=== PATIENT | male | born 1955 | race Two or more races ===

== ENCOUNTER 2025-08-08 08:33 | Inpatient (IN) | payer MEDICAID ==
[~2025-08-08] VITALS: Ht 182.9 cm; Wt 80.3 kg
[2025-08-08 08:37] VITALS: O2SAT 99
[2025-08-08] MEDS: IOHEXOL-350 100 ML BOTTLE ONE (09:23)
[2025-08-08 09:39] LABS: BASOPHILS % 0.4 % (0.0-2.0); EOSINOPHILS % 3.0 % (0.0-5.0); HEMATOCRIT. 28.1 % (42.0-52.0); HEMOGLOBIN. 9.3 g/dL (14.0-18.0); LYMPHOCYTES % 14.3 % (20.0-50.0); MONOCYTES % 14.4 % (2.0-8.0); NEUTROPHILS % 67.9 % (40.0-76.0); RED BLOOD CELL COUNT 2.89 mill/uL (4.7-6.1); RED CELL DISTRIBUTION WIDTH 17.2 % (11.6-14.6)
[2025-08-08 09:48] LABS: ADD RBC MORPHOLOGY YES
[2025-08-08 09:54] LABS: UREA NITROGEN BLOOD 43 mg/dL (9-23)
[2025-08-08 09:55] LABS: ETHANOL BLOOD < 10 mg/dL (<10); PROTEIN TOTAL 5.6 g/dL (6.0-8.3)
[2025-08-08 09:56] LABS: ASPARTATE AMINOTRANSFERASE 56 IU/L (<34); BILIRUBIN DIRECT 0.6 mg/dL (<=3.0); BILIRUBIN TOTAL 1.3 mg/dL (0.1-1.0)
[2025-08-08 09:57] LABS: INR 1.1
[2025-08-08 10:45] LABS: MEAN PLATELET VOLUME 8.1 fl (7.4-10.4); PLATELET 47 x1000/uL (130-400)
[2025-08-08 10:46] LABS: PLATELET ESTIMATE MARKEDLY DECREASED
[2025-08-08 10:47] LABS: TROPONIN I HIGH SENSITIVITY 120 ng/L (3.0-53)
[2025-08-08 10:48] LABS: CREATININE 7.6 mg/dL (0.6-1.3)
[2025-08-08] MEDS ORDERED: ACETAMINOPHEN 325MG TABLET PO PRN ×2 (14:00)
[2025-08-08] MEDS ORDERED: DOCUSATE SODIUM 100MG CAPSULE PO PRN (14:00)
[2025-08-08] MEDS ORDERED: CLONIDINE 0.1MG TABLET PO PRN (14:00)
[2025-08-08] MEDS ORDERED: ONDANSETRON HCL 4MG/2ML INJ IV PRN (14:00)
[2025-08-08] MEDS ORDERED: IPRATROPIUM/ALBUTEROL 0.5-3(2.5)MG/3ML NEB HHN PRN (14:00)
[2025-08-08 20:00] VITALS: BP 134/77; PULSE 67; RESP 18; TEMP 36.7; O2SAT 100
[2025-08-08] MEDS: EPOETIN ALFA-EPBX 4,000 UNITS/ML VIAL SUBCUT SCH (20:32)
[2025-08-08] MEDS: ATORVASTATIN CALCIUM 40MG TABLET PO SCH (20:32)
[2025-08-08 22:41] LABS: TRIGLYCERIDE 87 mg/dL (0-150)
[2025-08-08 22:42] LABS: LDL CHOLESTEROL 117 mg/dL (5-100)
[2025-08-08 22:43] LABS: FOLIC ACID (FOLATE) SERUM 15.13 ng/mL (>5.38)
[2025-08-08 22:45] LABS: T4 FREE 0.60 ng/dL (0.89-1.76); TROPONIN I HIGH SENSITIVITY 141 ng/L (3.0-53)
[2025-08-08 22:46] LABS: VITAMIN B12 SERUM > 2000 pg/mL (211-911)
[2025-08-08 22:47] LABS: VITAMIN B12 SERUM > 2000 pg/mL (211-911)
[2025-08-08 23:16] LABS: HEPATITIS A AB IGM NEGATIVE (Negative)
[2025-08-08 23:17] LABS: HEPATITIS B CORE AB IGM NEGATIVE (Negative); HEPATITIS C AB NON REACTIVE (Neg) (Negative)
[2025-08-08 23:21] VITALS: BP 134/77; PULSE 67; RESP 17; TEMP 36.7516
[2025-08-09] VITALS: BP 121/82; PULSE 63; RESP 19; TEMP 36.7; O2SAT 99
[2025-08-09 04:00] VITALS: BP 115/79; PULSE 70; RESP 18; TEMP 36.6; O2SAT 100
[2025-08-09 06:44] LABS: BASOPHILS % 0.4 % (0.0-2.0); EOSINOPHILS % 3.5 % (0.0-5.0); HEMATOCRIT. 30.0 % (42.0-52.0); HEMOGLOBIN. 9.8 g/dL (14.0-18.0); LYMPHOCYTES % 14.6 % (20.0-50.0); MEAN PLATELET VOLUME 8.3 fl (7.4-10.4); MONOCYTES % 13.5 % (2.0-8.0); NEUTROPHILS % 68.0 % (40.0-76.0); RED BLOOD CELL COUNT 3.01 mill/uL (4.7-6.1); RED CELL DISTRIBUTION WIDTH 19.2 % (11.6-14.6)
[2025-08-09 06:58] LABS: PLATELET 48 x1000/uL (130-400)
[2025-08-09 06:59] LABS: PROTEIN TOTAL 5.4 g/dL (6.0-8.3)
[2025-08-09 07:02] LABS: LDL CHOLESTEROL 101 mg/dL (5-100); TRIGLYCERIDE 84 mg/dL (0-150); UREA NITROGEN BLOOD 39 mg/dL (9-23)
[2025-08-09 07:03] LABS: ASPARTATE AMINOTRANSFERASE 58 IU/L (<34)
[2025-08-09 07:04] LABS: BILIRUBIN TOTAL 1.4 mg/dL (0.1-1.0); PHOSPHORUS 6.5 mg/dL (2.5-4.9)
[2025-08-09 07:20] LABS: TROPONIN I HIGH SENSITIVITY 124 ng/L (3.0-53)
[2025-08-09 08:00] VITALS: BP 108/82; PULSE 66; RESP 15; TEMP 36.3; O2SAT 98
[2025-08-09 08:10] LABS: CREATININE 8.6 mg/dL (0.6-1.3)
[2025-08-09] MEDS: FOLIC ACID/VITAMIN B COMP W-C TABLET PO SCH (08:44)
[2025-08-09] MEDS: CLOPIDOGREL 75MG TABLET PO SCH (08:44)
[2025-08-09] MEDS: ASPIRIN 81MG TABLET PO SCH (08:44)
[2025-08-09 12:00] VITALS: BP 111/70; PULSE 62; RESP 17; TEMP 36.3; O2SAT 99
[2025-08-09 16:00] VITALS: BP 116/71; PULSE 69; RESP 15; TEMP 36.3; O2SAT 96
[2025-08-09] MEDS: LANTHANUM CARBONATE 500MG CHEW TABLET PO SCH (17:50)
[2025-08-09 20:00] VITALS: BP 130/79; PULSE 69; RESP 19; TEMP 36.7; O2SAT 99
[2025-08-09 21:38] LABS: TROPONIN I HIGH SENSITIVITY 135 ng/L (3.0-53)
[2025-08-09] MEDS: IRON SUCROSE COMPLEX 100 MG/5 ML ML IV SCH (22:02)
[2025-08-10] VITALS (15 sets, daily range): BP systolic 102–145; BP diastolic 75–88; PULSE 57–72; RESP 15–20; TEMP 36.114–36.7; O2SAT 96–100
[2025-08-10] MEDS: LEVOTHYROXINE SODIUM 50MCG TABLET PO SCH (06:39)
[2025-08-10 08:41] LABS: PHOSPHORUS 7.1 mg/dL (2.5-4.9)
[2025-08-10] MEDS: LACTULOSE 20G/30ML UDC PO SCH (22:00)
[2025-08-11 04:00] VITALS: BP 129/78; PULSE 62; RESP 16; TEMP 36.1; O2SAT 97
[2025-08-11 08:25] LABS: HEMATOCRIT. 31.5 % (42.0-52.0); HEMOGLOBIN. 10.2 g/dL (14.0-18.0); MEAN PLATELET VOLUME 8.1 fl (7.4-10.4); RED BLOOD CELL COUNT 3.22 mill/uL (4.7-6.1); RED CELL DISTRIBUTION WIDTH 18.2 % (11.6-14.6)
[2025-08-11 08:38] LABS: PLATELET 43 x1000/uL (130-400)
[2025-08-11 08:47] LABS: UREA NITROGEN BLOOD 51.0 mg/dL (9-23)
[2025-08-11 10:17] LABS: CREATININE 9.0 mg/dL (0.6-1.3)
[2025-08-11] MEDS ORDERED: IPRATROPIUM/ALBUTEROL 0.5-3(2.5)MG/3ML NEB HHN PRN (13:15)
[2025-08-11] MEDS ORDERED: DIATR MEGLU/DIATRIZOATE SOLN 30ML PO PRN (14:00)
[2025-08-11] MEDS ORDERED: HYDRALAZINE 20MG/ML VIAL IV PRN (14:15)
[2025-08-11 16:00] VITALS: BP 127/84; PULSE 64; RESP 15; TEMP 36.4; O2SAT 96
[2025-08-11 16:31] LABS: EOSINOPHILS % MANUAL 1.0 % (0.0-5.0); LYMPHOCYTES % MANUAL 25.0 % (20.0-50.0); MONOCYTES % MANUAL 11.0 % (2.0-8.0); NEUTROPHILS % MANUAL 63.0 % (45.0-75.0); PLATELET ESTIMATE DECREASED
[2025-08-11 20:00] VITALS: BP 130/75; PULSE 65; RESP 18; TEMP 36.3; O2SAT 99
[2025-08-11] MEDS ORDERED: RIFAXIMIN 200MG TABLET PO SCH (21:00)
[2025-08-11] MEDS: RIFAXIMIN 550 MG TABLET PO SCH (23:04)
[2025-08-12] VITALS (15 sets, daily range): BP systolic 94–134; BP diastolic 66–90; PULSE 60–104; RESP 16–20; TEMP 35.5–36.3; O2SAT 96–98
[2025-08-12] MEDS ORDERED: LACTULOSE ENEMA 1,000ML BOTTLE PR NR (05:45)
[2025-08-12] MEDS: PANTOPRAZOLE SODIUM 40 MG/VIAL IV SCH (09:13)
[2025-08-12 12:42] LABS: HEMATOCRIT. 28.6 % (42.0-52.0); HEMOGLOBIN. 9.5 g/dL (14.0-18.0); MEAN PLATELET VOLUME 8.0 fl (7.4-10.4); RED BLOOD CELL COUNT 2.94 mill/uL (4.7-6.1); RED CELL DISTRIBUTION WIDTH 18.0 % (11.6-14.6)
[2025-08-12 12:58] LABS: UREA NITROGEN BLOOD 57 mg/dL (9-23)
[2025-08-12 12:59] LABS: PROTEIN TOTAL 5.4 g/dL (6.0-8.3)
[2025-08-12 13:00] LABS: ASPARTATE AMINOTRANSFERASE 53 IU/L (<34); LACTATE DEHYDROGENASE 265 IU/L (120-246)
[2025-08-12 13:01] LABS: BILIRUBIN TOTAL 1.5 mg/dL (0.1-1.0)
[2025-08-12 13:02] LABS: CREATININE 9.0 mg/dL (0.6-1.3)
[2025-08-12 14:18] LABS: EOSINOPHILS % MANUAL 3.0 % (0.0-5.0); LYMPHOCYTES % MANUAL 15.0 % (20.0-50.0); MONOCYTES % MANUAL 12.0 % (2.0-8.0); NEUTROPHILS % MANUAL 70.0 % (45.0-75.0); PLATELET ESTIMATE MARKEDLY DECREASED
[2025-08-12] MEDS: DIATR MEGLU/DIATRIZOATE SOLN 30ML PO SCH (17:25)
[2025-08-12 22:43] LABS: PLATELET 34 x1000/uL (130-400)
[2025-08-12] MEDS ORDERED: IOHEXOL-300 100 ML BOTTLE ONE (23:24)
[2025-08-13] VITALS (10 sets, daily range): BP systolic 119–140; BP diastolic 60–107; PULSE 62–99; RESP 17–18; TEMP 36–36.61404; O2SAT 97–98
[2025-08-13] MEDS: LACTULOSE 20G/30ML UDC PO SCH (06:39)
[2025-08-13 07:42] LABS: UREA NITROGEN BLOOD 31 mg/dL (9-23)
[2025-08-13 07:43] LABS: PROTEIN TOTAL 6.1 g/dL (6.0-8.3)
[2025-08-13 07:44] LABS: ASPARTATE AMINOTRANSFERASE 78 IU/L (<34); BILIRUBIN TOTAL 1.5 mg/dL (0.1-1.0)
[2025-08-13 07:46] LABS: CREATININE 8.0 mg/dL (0.6-1.3)
[2025-08-13 07:47] LABS: INR 1.1
[2025-08-13] MEDS ORDERED: ALBUMIN HUMAN 25GM/100ML (25%) IV PRN (08:00)
[2025-08-13 10:40] LABS: BASOPHILS % 0.5 % (0.0-2.0); EOSINOPHILS % 2.3 % (0.0-5.0); HEMATOCRIT. 33.0 % (42.0-52.0); HEMOGLOBIN. 10.8 g/dL (14.0-18.0); LYMPHOCYTES % 10.8 % (20.0-50.0); MEAN PLATELET VOLUME 8.5 fl (7.4-10.4); MONOCYTES % 16.6 % (2.0-8.0); NEUTROPHILS % 69.8 % (40.0-76.0); RED BLOOD CELL COUNT 3.40 mill/uL (4.7-6.1); RED CELL DISTRIBUTION WIDTH 18.1 % (11.6-14.6)
[2025-08-13 11:02] LABS: PLATELET 48 x1000/uL (130-400)
[2025-08-13] MEDS: LACTULOSE ENEMA 1,000ML BOTTLE PR SCH (11:18)
[2025-08-14] VITALS: BP 124/77; PULSE 68; RESP 18; TEMP 36.3; O2SAT 98
[2025-08-14 04:00] VITALS: BP 120/79; PULSE 74; RESP 18; TEMP 36.3; O2SAT 96
[2025-08-14 08:00] VITALS: BP 139/82; PULSE 67; RESP 16; TEMP 36.5; O2SAT 97
[2025-08-14] MEDS ORDERED: SODIUM BICARBONATE 4.2% 2.5MEQ/5ML VIAL IV ONE (11:48)
[2025-08-14] MEDS ORDERED: LIDOCAINE HCL 1% 10 MG/ML 10ML VIAL ONE (11:49)
[2025-08-14 12:00] VITALS: BP 130/82; PULSE 65; RESP 18; TEMP 36.4; O2SAT 98
[2025-08-14 16:00] VITALS: BP 118/75; PULSE 68; RESP 15; TEMP 36.6; O2SAT 99
[2025-08-14 20:00] VITALS: BP 123/84; PULSE 71; RESP 20; TEMP 37.2; O2SAT 100
[2025-08-15] VITALS (15 sets, daily range): BP systolic 110–138; BP diastolic 72–86; PULSE 60–82; RESP 15–19; TEMP 36.22512–36.8; O2SAT 95–100
[2025-08-15 01:33] LABS: BODY FLUID MONOCYTES 7 %; BODY FLUID RBC 7300 /cu mm (0-2000); BODY FLUID WBC 14 /cu mm (0-200)
[2025-08-15 05:58] LABS: PROTEIN TOTAL 5.2 g/dL (6.0-8.3); UREA NITROGEN BLOOD 48 mg/dL (9-23)
[2025-08-15 05:59] LABS: ASPARTATE AMINOTRANSFERASE 95 IU/L (<34)
[2025-08-15 06:00] LABS: BILIRUBIN DIRECT 0.7 mg/dL (<=3.0); BILIRUBIN TOTAL 1.3 mg/dL (0.1-1.0)
[2025-08-15 06:07] LABS: CREATININE 9.9 mg/dL (0.6-1.3)
[2025-08-15 06:26] LABS: HEMATOCRIT. 30.4 % (42.0-52.0); HEMOGLOBIN. 10.1 g/dL (14.0-18.0); MEAN PLATELET VOLUME 8.1 fl (7.4-10.4); PLATELET 52 x1000/uL (130-400); RED BLOOD CELL COUNT 3.15 mill/uL (4.7-6.1); RED CELL DISTRIBUTION WIDTH 17.0 % (11.6-14.6)
[2025-08-15 08:09] LABS: ALPHA FETOPROTEIN TUMOR MARKER 3.9 ng/mL (0.0-8.4); CA 19-9 84.0 U/mL (0-35); CARCINOEMBRYONIC AG - SEND OUT 10.7 ng/mL (0.0-4.7); PROSTATE SPECIFIC AG TOTAL 1.3 ng/mL (0.0-4.0)
[2025-08-15] MEDS ORDERED: RIFA550T PO (08:55)
[2025-08-15] MEDS ORDERED: CARV3.1242 MT (08:55)
[2025-08-15] MEDS ORDERED: LEVO50TA8 PO (08:55)
[2025-08-15] MEDS ORDERED: LACT-390 PO (08:55)
[2025-08-15 18:51] LABS: EOSINOPHILS % MANUAL 2.0 % (0.0-5.0); LYMPHOCYTES % MANUAL 4.0 % (20.0-50.0); MONOCYTES % MANUAL 10.0 % (2.0-8.0); NEUTROPHILS % MANUAL 84.0 % (45.0-75.0); PLATELET ESTIMATE DECREASED
[2025-08-16] VITALS: BP 116/73; PULSE 73; RESP 20; TEMP 36.6; O2SAT 98
[2025-08-16 04:00] VITALS: BP 100/61; PULSE 66; RESP 20; TEMP 36.3; O2SAT 99
[2025-08-16 07:32] LABS: HEMATOCRIT. 30.8 % (42.0-52.0); HEMOGLOBIN. 10.1 g/dL (14.0-18.0); MEAN PLATELET VOLUME 8.0 fl (7.4-10.4); PLATELET 54 x1000/uL (130-400); RED BLOOD CELL COUNT 3.22 mill/uL (4.7-6.1); RED CELL DISTRIBUTION WIDTH 16.8 % (11.6-14.6)
[2025-08-16 07:46] LABS: UREA NITROGEN BLOOD 42 mg/dL (9-23)
[2025-08-16 07:47] LABS: PROTEIN TOTAL 5.3 g/dL (6.0-8.3)
[2025-08-16 07:48] LABS: ASPARTATE AMINOTRANSFERASE 100 IU/L (<34); BILIRUBIN DIRECT 1.2 mg/dL (<=3.0); BILIRUBIN TOTAL 1.9 mg/dL (0.1-1.0)
[2025-08-16 07:52] LABS: CREATININE 8.9 mg/dL (0.6-1.3)
[2025-08-16 08:00] VITALS: BP 114/73; PULSE 65; RESP 17; TEMP 35.8; O2SAT 95
[2025-08-16 12:00] VITALS: BP 113/70; PULSE 67; RESP 17; TEMP 35.9; O2SAT 96
[2025-08-16 16:00] VITALS: BP 117/75; PULSE 67; RESP 17; TEMP 36.1; O2SAT 97
[2025-08-16 16:17] LABS: EOSINOPHILS % MANUAL 1.0 % (0.0-5.0); LYMPHOCYTES % MANUAL 8.0 % (20.0-50.0); MONOCYTES % MANUAL 15.0 % (2.0-8.0); NEUTROPHILS % MANUAL 76.0 % (45.0-75.0); PLATELET ESTIMATE DECREASED
[2025-08-16 20:00] VITALS: BP 113/70; PULSE 69; RESP 18; TEMP 36.4; O2SAT 97
[2025-08-17] VITALS (14 sets, daily range): BP systolic 93–131; BP diastolic 66–84; PULSE 17–88; RESP 17–19; TEMP 35.7–36.3; O2SAT 97–100
[2025-08-17 07:10] LABS: HEMATOCRIT. 31.1 % (42.0-52.0); HEMOGLOBIN. 10.2 g/dL (14.0-18.0); MEAN PLATELET VOLUME 7.9 fl (7.4-10.4); PLATELET 55 x1000/uL (130-400); RED BLOOD CELL COUNT 3.26 mill/uL (4.7-6.1); RED CELL DISTRIBUTION WIDTH 17.0 % (11.6-14.6)
[2025-08-17 07:18] LABS: UREA NITROGEN BLOOD 49.0 mg/dL (9-23)
[2025-08-17 08:45] LABS: CREATININE 10.0 mg/dL (0.6-1.3)
[2025-08-17 10:03] LABS: EOSINOPHILS % MANUAL 5.0 % (0.0-5.0); LYMPHOCYTES % MANUAL 12.0 % (20.0-50.0); MONOCYTES % MANUAL 14.0 % (2.0-8.0); NEUTROPHILS % MANUAL 69.0 % (45.0-75.0); PLATELET ESTIMATE DECREASED
[2025-08-18] VITALS (7 sets, daily range): BP systolic 95–125; BP diastolic 41–75; PULSE 64–81; RESP 17–20; TEMP 36.2–36.8; O2SAT 97–100
[2025-08-18 11:47] LABS: PROTEIN TOTAL 5.8 g/dL (6.0-8.3); UREA NITROGEN BLOOD 46 mg/dL (9-23)
[2025-08-18 11:48] LABS: ASPARTATE AMINOTRANSFERASE 78 IU/L (<34)
[2025-08-18 11:49] LABS: BILIRUBIN DIRECT 0.9 mg/dL (<=3.0); BILIRUBIN TOTAL 1.6 mg/dL (0.1-1.0); CREATININE 8.5 mg/dL (0.6-1.3)
[2025-08-18] MEDS: POTASSIUM CHLORIDE 20MEQ TABLET SR PO SCH (23:33)
[2025-08-19] VITALS (14 sets, daily range): BP systolic 100–141; BP diastolic 66–82; PULSE 67–84; RESP 15–19; TEMP 36.2–36.78072; O2SAT 96–100
[2025-08-19] MEDS ORDERED: LIDOCAINE HCL 1% 10 MG/ML 10ML VIAL ONE (07:25)
[2025-08-19 07:28] LABS: HEMATOCRIT. 30.5 % (42.0-52.0); HEMOGLOBIN. 9.9 g/dL (14.0-18.0); MEAN PLATELET VOLUME 7.8 fl (7.4-10.4); PLATELET 69 x1000/uL (130-400); RED BLOOD CELL COUNT 3.17 mill/uL (4.7-6.1); RED CELL DISTRIBUTION WIDTH 16.9 % (11.6-14.6)
[2025-08-19 07:30] LABS: UREA NITROGEN BLOOD 46 mg/dL (9-23)
[2025-08-19 07:31] LABS: INR 1.1; PROTEIN TOTAL 5.5 g/dL (6.0-8.3)
[2025-08-19 07:32] LABS: ASPARTATE AMINOTRANSFERASE 65 IU/L (<34)
[2025-08-19 07:33] LABS: BILIRUBIN TOTAL 1.4 mg/dL (0.1-1.0)
[2025-08-19 07:40] LABS: CREATININE 9.1 mg/dL (0.6-1.3)
[2025-08-20 20:42] LABS: BAND% 1.0 % (1.0-6.0); EOSINOPHILS % MANUAL 4.0 % (0.0-5.0); LYMPHOCYTES % MANUAL 9.0 % (20.0-50.0); MONOCYTES % MANUAL 13.0 % (2.0-8.0); NEUTROPHILS % MANUAL 73.0 % (45.0-75.0)
[2025-08-20 20:43] LABS: PLATELET ESTIMATE DECREASED
== END 2025-08-19 15:28 | disposition home or self-care (01) | DRG 52 ==
LOC: ER 08:33 → EDBEDREQ 09:00 → 6WST 11:17 → EDBEDREQTM 11:18 → EDBEDREQ 11:18 → ENRESERV 12:01 → CANRESERV 12:01
PROVIDERS: ADMIT Family Medicine Adult Medicine; ATTEND Family Medicine Adult Medicine
PROC: 5A1D70Z Performance of Urinary Filtration, Intermittent, Less than 6 Hours Per Day (ICD-10-PCS; 2025-08-10)
PROC: 5A1D70Z Performance of Urinary Filtration, Intermittent, Less than 6 Hours Per Day (ICD-10-PCS; 2025-08-12)
PROC: 30233R1 Transfusion of Nonautologous Platelets into Peripheral Vein, Percutaneous Approach (ICD-10-PCS; 2025-08-13)
PROC: 0W9G3ZZ Drainage of Peritoneal Cavity, Percutaneous Approach (ICD-10-PCS; principal; 2025-08-14)
PROC: 5A1D70Z Performance of Urinary Filtration, Intermittent, Less than 6 Hours Per Day (ICD-10-PCS; 2025-08-15)
PROC: 5A1D70Z Performance of Urinary Filtration, Intermittent, Less than 6 Hours Per Day (ICD-10-PCS; 2025-08-17)
PROC: 5A1D70Z Performance of Urinary Filtration, Intermittent, Less than 6 Hours Per Day (ICD-10-PCS; 2025-08-19)
DX: G92.8 Other toxic encephalopathy (principal); D61.818 Other pancytopenia; I12.0 Hypertensive chronic kidney disease with stage 5 chronic kidney disease or end stage renal disease; K76.82 Hepatic encephalopathy; N18.6 End stage renal disease; I44.1 Atrioventricular block, second degree; E88.09 Other disorders of plasma-protein metabolism, not elsewhere classified; R18.8 Other ascites; Z99.2 Dependence on renal dialysis; Z79.02 Long term (current) use of antithrombotics/antiplatelets; D53.9 Nutritional anemia, unspecified; E11.22 Type 2 diabetes mellitus with diabetic chronic kidney disease; E03.9 Hypothyroidism, unspecified; I65.23 Occlusion and stenosis of bilateral carotid arteries; I08.0 Rheumatic disorders of both mitral and aortic valves; R79.89 Other specified abnormal findings of blood chemistry; E80.6 Other disorders of bilirubin metabolism; K75.9 Inflammatory liver disease, unspecified; D72.821 Monocytosis (symptomatic); R00.1 Bradycardia, unspecified; K80.20 Calculus of gallbladder without cholecystitis without obstruction; I44.7 Left bundle-branch block, unspecified; R97.0 Elevated carcinoembryonic antigen [CEA]; Z79.899 Other long term (current) drug therapy; Z86.73 Personal history of transient ischemic attack (TIA), and cerebral infarction without residual deficits
CPT/HCPCS: 36415; 49083; 70496; 70498; 70551; 71045; 74177; 76700; 80048; 80053; 80061; 80076; 80320; 82040; 82105; 82140; 82378; 82550; 82607; 82728; 82746; 82977; 83036; 83540; 83550; 83615; 83735; 84100; 84153; 84439; 84443; 84481; 84484; 85025; 85044; 86301; 86705; 86709; 86850; 86880; 86900; 87340; 88108; 90935; 92610; 93005; 93306; 93970; 97162; 97165; 99285; A4606; A4615; J0885; J2003; J2470; J3490; P9034; Q9963; Q9967; G0480